=== PATIENT | female | born 1950 | race African-American/Black ===

== ENCOUNTER → 2024-01-30 | Outpatient (CLI) | payer MEDICARE, MEDICAID | END | disposition home or self-care (01) | LOC: US 10:26 | PROVIDERS: ATTEND Internal Medicine Critical Care Medicine | DX: N13.30 Unspecified hydronephrosis (principal); N20.0 Calculus of kidney | CPT/HCPCS: 76770 ==

== ENCOUNTER 2024-09-27 14:03 | Emergency (ER) | payer MEDICARE, MEDICAID ==
[~2024-09-27] VITALS: Ht 172.7 cm; Wt 72.7 kg
[2024-09-27 14:18] VITALS: O2SAT 99
[2024-09-27 14:19] VITALS: BP 169/100; PULSE 107; RESP 18; TEMP 37; O2SAT 100
[2024-09-27 15:12] LABS: CALCIUM 9.4 mg/dL (8.7-10.4); POTASSIUM 3.5 mEq/L (3.5-5.1)
[2024-09-27 15:18] LABS: CREATININE 1.3 mg/dL (0.6-1.0)
[2024-09-27 15:21] LABS: HEMATOCRIT. 34.6 % (36.0-48.0); HEMOGLOBIN. 10.9 g/dL (12.0-16.0); MEAN CORPUSCULAR HEMOGLOBIN 26.1 pg (28.0-32.0); MEAN CORPUSCULAR HGB CONC 31.5 g/dL (31.0-37.0); PLATELET 320 x1000/uL (130-400); RED BLOOD CELL COUNT 4.17 mill/uL (4.2-5.4); RED CELL DISTRIBUTION WIDTH 16.1 % (11.6-14.6)
[2024-09-27 15:24] LABS: DIFFERENTIAL COMMENT 1
[2024-09-28 00:07] LABS: PLATELET ESTIMATE NORMAL
== END 2024-09-27 15:53 | disposition home or self-care (01) ==
LOC: ER 14:03
DX: T83.012A Breakdown (mechanical) of nephrostomy catheter, initial encounter (principal); I10 Essential (primary) hypertension; Y92.89 Other specified places as the place of occurrence of the external cause
CPT/HCPCS: 36415; 80048; 85025; 99283

== ENCOUNTER 2024-09-28 06:36 | Emergency (ER) | payer MEDICARE, MEDICAID ==
[~2024-09-28] VITALS: Ht 172.7 cm; Wt 72.0 kg
[2024-09-28 06:52] VITALS: O2SAT 97
[2024-09-28 06:56] VITALS: BP 144/81; PULSE 94; RESP 16; TEMP 36.6; O2SAT 100
== END 2024-09-28 08:31 | disposition left against medical advice (07) ==
LOC: ER 06:36
DX: Z00.00 Encounter for general adult medical examination without abnormal findings (principal); Z53.21 Procedure and treatment not carried out due to patient leaving prior to being seen by health care provider

== ENCOUNTER 2024-09-30 06:40 | Emergency (ER) | payer MEDICARE, MEDICAID ==
[~2024-09-30] VITALS: Ht 172.7 cm; Wt 72.0 kg
[2024-09-30] VITALS (12 sets, daily range): BP systolic 164–193; BP diastolic 94–110; PULSE 92–106; RESP 13–19; TEMP 36.6; O2SAT 100
[2024-09-30 07:59] LABS: PROTHROMBIN TIME 11.2 sec (9.6-11.0)
[2024-09-30] MEDS ORDERED: CEFAZOLIN 1000MG PREMIX 50 ML IV ONE (09:16)
[2024-09-30] MEDS ORDERED: LIDOCAINE HCL 1% 10 MG/ML 10ML VIAL ONE (09:22)
[2024-09-30] MEDS ORDERED: IOHEXOL-300 50 ML BOTTLE IV ONE (09:22)
[2024-09-30] MEDS ORDERED: FENTANYL CITRATE/PF 50MCG/ML 2ML VIAL ONE (09:51)
[2024-09-30] MEDS: CEFAZOLIN 1000MG PREMIX 50 ML IV ONE (09:55)
[2024-09-30] MEDS: FENTANYL CITRATE/PF 50MCG/ML 2ML VIAL IV NR (10:15)
[2024-09-30] MEDS: LORAZEPAM 1MG TABLET PO ONE (11:51)
[2024-09-30] MEDS: CLONIDINE 0.1MG TABLET PO ONE (11:52)
[2024-09-30] MEDS: HYDROCODONE/ACETAMINOPHEN 5/325MG TABLET PO ONE (11:52)
[2024-09-30] MEDS ORDERED: HYDR-4001 MT (13:16)
== END 2024-09-30 12:59 | disposition home or self-care (01) ==
LOC: ER 06:40
DX: T83.012A Breakdown (mechanical) of nephrostomy catheter, initial encounter (principal); I48.91 Unspecified atrial fibrillation; I10 Essential (primary) hypertension; Z98.890 Other specified postprocedural states; Y92.89 Other specified places as the place of occurrence of the external cause
CPT/HCPCS: 96365; 99285; 99152; 99153; 85610; 36415; 50435; J3010; Q9967; J0690; J2003; C1729; C1769 ×3; 99284; G0500

== ENCOUNTER → 2025-03-03 | Outpatient (CLI) | payer MEDICARE, MEDICAID ==
[~2025-03-03] MED LIST: HYDR-4001 MT
== END | disposition home or self-care (01) ==
LOC: RAD 12:04
PROVIDERS: ATTEND Internal Medicine Critical Care Medicine
DX: Z01.818 Encounter for other preprocedural examination (principal); J44.9 Chronic obstructive pulmonary disease, unspecified; J98.4 Other disorders of lung; I51.7 Cardiomegaly
CPT/HCPCS: 71046